=== PATIENT | male | born 1970 | race Caucasian/White ===

== ENCOUNTER → 2025-06-06 | Outpatient (CLI) | payer OTHER, SELFPAY ==
[2025-06-06 12:24] LABS: PSA,Total- Diagnostic 1.54 ng/mL (0.00-4.00)
== END | disposition home or self-care (01) ==
PROVIDERS: PCP Physician Assistant; Referring Provider Nurse Practitioner; Visit Provider Nurse Practitioner
DX: Z12.5 Encounter for screening for malignant neoplasm of prostate (principal)
CPT/HCPCS: 36415; 84153